=== PATIENT | female | born 1975 | race Caucasian/White ===

== ENCOUNTER 2016-07-12 17:56 | Emergency (ER) | payer OTHER ==
[~2016-07-12] VITALS: Ht 157.5 cm; Wt 56.0 kg
[~2016-07-12 17:56] MED LIST: ADVAIR 100/501 DISK IH; ADVIL,NUPRIN,M200 MG PO; ALPRAZOLAM ER1 MG PO; ALPRAZOLAM1 MG PO; ASMANEX TW200 MICRO1 IH; BACTROBAN OINTM22 GM TP; BENZTROPINE MESY2 MG PO; BONINE25 MG PO; CIPRO500 MG PO; CLINDAMYCIN HC300 MG PO; COGENTIN0.5 MG PO; COGENTIN2 MG PO; COLACE100 MG PO; ESCITALOPRAM OX20 MG PO; FLEXERIL10 MG PO; FLEXERIL5 MG PO; HALDOL5 MG PO; INDOCIN25 MG PO; INVEGA6 MG PO; KEFLEX250 MG PO; LEXAPRO20 MG PO; MECLIZINE HCL25 MG PO; MOBIC15 MG PO; MOBIC7.5 MG PO; MOTRIN600 MG PO; MOTRIN800 MG PO; NAPROSYN375 MG PO; NAPROSYN500 MG PO; NAPROXEN500 MG PO; NORCO 5/3251 TABLET PO; PERCOCET 5/31 TABLET PO; PERPHENAZINE8 MG PO; PROLIXIN2.5 MG PO; SILVADENE,SSD,T20 GM TP; TEMAZEPAM30 MG PO; TRILAFON8 MG PO; ULTRAM50 MG PO; VENTOLIN HFA18 GM IH; XANAX1 MG PO; XANAX2 MG PO; ZANTAC300 MG PO; ZOFRAN ODT4 MG PO; no home
[2016-07-12 19:39] VITALS: BP 130/81
== END 2016-07-12 19:45 | disposition home or self-care (01) ==
LOC: EME 17:56
PROC: 3E0234Z Introduction of Serum, Toxoid and Vaccine into Muscle, Percutaneous Approach (ICD-10-PCS; principal; 2016-07-12)
DX: S51.812A Laceration without foreign body of left forearm, initial encounter (principal); X78.1XXA Intentional self-harm by knife, initial encounter; Z23 Encounter for immunization; J45.909 Unspecified asthma, uncomplicated; K21.9 Gastro-esophageal reflux disease without esophagitis
CPT/HCPCS: 99281; 99285

== ENCOUNTER 2016-08-30 00:58 | Emergency (ER) | payer OTHER ==
[~2016-08-30] VITALS: Ht 160 cm; Wt 52.3 kg
[2016-08-30 01:53] LABS: HEMATOCRIT 39.8 % (36.0-46.0); MCH 29.9 PG (29.0-34.0); MCHC 33.9 G/DL (30.0-36.0); MCV 88.1 FL (83-99); MEAN PLAT.VOLUME 10.8 uM^3 (9.5-12.4); PLATELET COUNT 305 K/uL (156-360); RBC DIS.WIDTH-CV 13.2 % (11.8-14.6); RBC DIS.WIDTH-SD 42.3 % (39-53); RED BLOOD COUNT 4.52 M/uL (3.80-5.20); WHITE BLOOD COUNT 7.6 K/uL (4.1-10.2)
[2016-08-30 01:58] LABS: ADD MIUA? YES; BILIRUBIN NEGATIVE; BLOOD NEGATIVE; COLOR YELLOW ((YELLOW)); GLUCOSE (STRIP) NEGATIVE; KETONES NEGATIVE; LEUKOCYTES NEGATIVE; NITRITE NEGATIVE; PROTEIN (STRIP) NEGATIVE; SPECIFIC GRAVITY 1.014 (1.000-1.030); UROBILINOGEN 0.2 MG/DL (0.2-1.0)
[2016-08-30 02:01] LABS: CHLORIDE 109 mEq/L (99-109); POTASSIUM 3.7 mEq/L (3.7-5.4); SODIUM 142 mEq/L (136-147)
[2016-08-30 02:03] LABS: GLUCOSE 99 mg/dL (70-99)
[2016-08-30 02:04] LABS: ANION GAP 12 MEQ/L (2-14)
[2016-08-30 02:05] LABS: TOTAL BILIRUBIN 0.2 mg/dL (0.0-1.0)
[2016-08-30 02:06] LABS: SERUM ETHYL ALCOHOL 34 mg/dL
[2016-08-30 02:07] LABS: ALKALINE PHOSPHATASE 61 IU/L (3-129); GFR ESTIMATE (CALCULATED) > 59 mL/min/
[2016-08-30 02:08] LABS: UREA NITROGEN (BUN) 14 mg/dL (9-23)
[2016-08-30 02:09] LABS: BACTERIA NONE SEEN /HPF; EPITHELIAL CELLS RARE /HPF; MUCUS TRACE /LPF; RED BLOOD CELLS 0-5 /HPF (0-5); UCUL ADDED? NO; WHITE BLOOD CELLS 0-5 /HPF (0-5)
[2016-08-30 02:10] LABS: LIPASE 68 U/L (1.0-51.0)
[2016-08-30 02:13] LABS: TROP-I INTERPRETATION NEGATIVE; TROPONIN-I < 0.01 ng/mL (0.0-0.30)
[2016-08-30 02:18] LABS: QUANTITATIVE HCG < 4.0 MIU/ML
[2016-08-30] MEDS ORDERED: MAALOX ADVANCE355 ML PO (03:31)
[2016-08-30 04:37] VITALS: BP 106/63
== END 2016-08-30 04:38 | disposition home or self-care (01) ==
LOC: EME 00:58
PROVIDERS: Emergency Medicine
DX: R10.13 Epigastric pain (principal); F10.10 Alcohol abuse, uncomplicated; K29.20 Alcoholic gastritis without bleeding; F14.10 Cocaine abuse, uncomplicated; Z91.14 Patient's other noncompliance with medication regimen; Y90.1 Blood alcohol level of 20-39 mg/100 ml
CPT/HCPCS: 71010; 80053; 81003; 83690; 84484; 84702; 85027; 93005; 99281; 99284; G0480; J7030

== ENCOUNTER 2016-10-04 13:43 | Emergency (ER) | payer OTHER ==
[~2016-10-04] VITALS: Ht 162.6 cm; Wt 54.0 kg
[~2016-10-04 13:43] MED LIST changes: +MAALOX ADVANCE355 ML PO
[2016-10-04 14:52] LABS: HEMATOCRIT 42.7 % (36.0-46.0); MCH 29.8 PG (29.0-34.0); MCHC 32.6 G/DL (30.0-36.0); MCV 91.6 FL (83-99); RBC DIS.WIDTH-CV 12.8 % (11.8-14.6); RBC DIS.WIDTH-SD 43.1 % (39-53); RED BLOOD COUNT 4.66 M/uL (3.80-5.20); WHITE BLOOD COUNT 8.4 K/uL (4.1-10.2)
[2016-10-04 15:02] LABS: CHLORIDE 108 mEq/L (99-109); POTASSIUM 3.8 mEq/L (3.7-5.4); SODIUM 140 mEq/L (136-147)
[2016-10-04 15:04] LABS: GLUCOSE 148 mg/dL (70-99)
[2016-10-04 15:06] LABS: ANION GAP 11 MEQ/L (2-14)
[2016-10-04 15:08] LABS: GFR ESTIMATE (CALCULATED) > 59 mL/min/
[2016-10-04 15:09] LABS: UREA NITROGEN (BUN) 11 mg/dL (9-23)
[2016-10-04 15:16] LABS: TROP-I INTERPRETATION NEGATIVE; TROPONIN-I < 0.01 ng/mL (0.0-0.30)
[2016-10-04 15:17] LABS: QUANTITATIVE HCG < 4.0 MIU/ML
[2016-10-04] MEDS ORDERED: VENTOLIN HFA18 GM IH (15:50)
[2016-10-04] MEDS ORDERED: TESSALON PERLE100 MG PO (15:50)
[2016-10-04] MEDS ORDERED: PREDNISONE20 MG PO (15:50)
[2016-10-04 16:02] VITALS: BP 115/65
[2016-10-04 16:09] LABS: PLAT.SUFFICIENCY ADEQUATE; PLATELET COUNT 249 K/uL (156-360)
== END 2016-10-04 16:08 | disposition home or self-care (01) ==
LOC: EME → EDBD 13:43 → EME 16:08
PROVIDERS: Nurse Practitioner Family
DX: R05 Cough (principal); R06.2 Wheezing; R06.02 Shortness of breath; J45.909 Unspecified asthma, uncomplicated; F14.10 Cocaine abuse, uncomplicated; K21.9 Gastro-esophageal reflux disease without esophagitis; F17.210 Nicotine dependence, cigarettes, uncomplicated
CPT/HCPCS: 71020; 80048; 84484; 84702; 85027; 93005; 94640; 99281; 99284; J2930; J7030; J7644

== ENCOUNTER 2016-10-14 18:24 | Emergency (ER) | payer OTHER ==
[~2016-10-14] VITALS: Ht 157.5 cm; Wt 44.0 kg
[~2016-10-14 18:24] MED LIST changes: +PREDNISONE20 MG PO; +TESSALON PERLE100 MG PO
[2016-10-14] MEDS ORDERED: MOTRIN600 MG PO (18:49)
[2016-10-14] MEDS ORDERED: NORCO 5/3251 TABLET PO (19:25)
[2016-10-14] MEDS ORDERED: PERCOCET 5/31 TABLET PO (19:29)
[2016-10-14 19:32] VITALS: BP 126/73
== END 2016-10-14 19:43 | disposition home or self-care (01) ==
LOC: EME 18:24
DX: S80.01XA Contusion of right knee, initial encounter (principal); W19.XXXA Unspecified fall, initial encounter; Y92.410 Unspecified street and highway as the place of occurrence of the external cause; F17.200 Nicotine dependence, unspecified, uncomplicated
CPT/HCPCS: 73564; 99281; 99284

== ENCOUNTER 2016-10-26 12:22 | Emergency (ER) | payer OTHER ==
[~2016-10-26] VITALS: Ht 160 cm; Wt 54.2 kg
[2016-10-26] MEDS ORDERED: DOXYCYCLINE HY100 MG PO (13:38)
[2016-10-26 15:03] VITALS: BP 132/88
== END 2016-10-26 15:47 | disposition home or self-care (01) ==
LOC: EME 12:22
PROC: 3E0234Z Introduction of Serum, Toxoid and Vaccine into Muscle, Percutaneous Approach (ICD-10-PCS; principal; 2016-10-26)
DX: S51.851A Open bite of right forearm, initial encounter (principal); W54.0XXA Bitten by dog, initial encounter; Z23 Encounter for immunization; Z59.0 Homelessness; Z88.0 Allergy status to penicillin; F17.200 Nicotine dependence, unspecified, uncomplicated
CPT/HCPCS: 99281; 99285

== ENCOUNTER 2016-10-29 21:08 | Emergency (ER) | payer OTHER ==
[~2016-10-29] VITALS: Ht 167.6 cm; Wt 52.9 kg
[~2016-10-29 21:08] MED LIST changes: +DOXYCYCLINE HY100 MG PO
[2016-10-29 21:34] VITALS: BP 131/80
[2016-10-30 13:22] LABS: CHLAMYDIA TRACHOMATIS NEGATIVE; NEISSERIA GONORRHOEAE NEGATIVE
== END 2016-10-29 23:29 | disposition left against medical advice (07) ==
LOC: EME 21:08
PROVIDERS: Physician Assistant
PROC: 3E0234Z Introduction of Serum, Toxoid and Vaccine into Muscle, Percutaneous Approach (ICD-10-PCS; principal; 2016-10-29)
DX: Z23 Encounter for immunization (principal); S41.151D Open bite of right upper arm, subsequent encounter; W54.0XXD Bitten by dog, subsequent encounter
CPT/HCPCS: 87210; 87491; 87591; 99281; 99284

== ENCOUNTER 2017-02-02 08:38 | Emergency (ER) | payer OTHER ==
[~2017-02-02] VITALS: Ht 160 cm; Wt 54.5 kg
[2017-02-02 10:07] LABS: EOSINOPHIL (%) 0.4 % (0-5); HEMATOCRIT 38.5 % (36.0-46.0); IMMATURE GRANULOCYTE (%) 0.4 % (0.0-0.7); INSTRUMENT ABS NEUTROPHIL CT 6.5 K/uL; LYMPHOCYTE COUNT 2.3 K/uL (1.0-2.8); MCH 29.1 PG (29.0-34.0); MCHC 33.2 G/DL (30.0-36.0); MCV 87.5 FL (83-99); MEAN PLAT.VOLUME 10.8 uM^3 (9.5-12.4); MONOCYTE (%) 8.4 % (3-12); MONOCYTE COUNT 0.8 K/uL (0-0.8); NEUTROPHIL (%) 67.2 % (45-76); NEUTROPHIL COUNT 6.5 K/uL (1.8-6.4); PLATELET COUNT 244 K/uL (156-360); RBC DIS.WIDTH-CV 13.4 % (11.8-14.6); RBC DIS.WIDTH-SD 42.9 % (39-53); WHITE BLOOD COUNT 9.7 K/uL (4.1-10.2)
[2017-02-02 10:21] LABS: CHLORIDE 111 mEq/L (99-109); POTASSIUM 3.6 mEq/L (3.7-5.4); SODIUM 141 mEq/L (136-147)
[2017-02-02 10:23] LABS: GLUCOSE 84 mg/dL (70-99)
[2017-02-02 10:24] LABS: ANION GAP 10 MEQ/L (2-14)
[2017-02-02 10:27] LABS: GFR ESTIMATE (CALCULATED) > 59 mL/min/
[2017-02-02 10:28] LABS: UREA NITROGEN (BUN) 12 mg/dL (9-23)
[2017-02-02 10:35] LABS: QUANTITATIVE HCG < 4.0 MIU/ML
[2017-02-02] MEDS ORDERED: NAPROXEN500 MG PO (12:47)
[2017-02-02 12:51] VITALS: BP 148/105
== END 2017-02-02 12:51 | disposition home or self-care (01) ==
LOC: EME 08:38
PROVIDERS: Physician Assistant
DX: N83.201 Unspecified ovarian cyst, right side (principal); F17.200 Nicotine dependence, unspecified, uncomplicated; Z88.0 Allergy status to penicillin; Z88.6 Allergy status to analgesic agent
CPT/HCPCS: 76856; 80048; 84702; 85025; 86900; 86901; 99281; 99284

== ENCOUNTER 2017-02-26 10:27 | Emergency (ER) | payer OTHER ==
[~2017-02-26] VITALS: Ht 160 cm; Wt 54.9 kg
[2017-02-26] MEDS ORDERED: VENTOLIN HFA18 GM IH (12:54)
[2017-02-26] MEDS ORDERED: TESSALON200 MG PO (12:54)
[2017-02-26] MEDS ORDERED: PREDNISONE10 M1 PO (12:54)
[2017-02-26 13:09] VITALS: BP 132/69
== END 2017-02-26 13:10 | disposition home or self-care (01) ==
LOC: EME 10:27
DX: J20.9 Acute bronchitis, unspecified (principal); F17.200 Nicotine dependence, unspecified, uncomplicated; J45.909 Unspecified asthma, uncomplicated; K21.9 Gastro-esophageal reflux disease without esophagitis; F20.9 Schizophrenia, unspecified; G89.29 Other chronic pain; Z88.0 Allergy status to penicillin
CPT/HCPCS: 99281; 99283

== ENCOUNTER 2017-05-31 18:44 | Emergency (ER) | payer OTHER ==
[~2017-05-31] VITALS: Ht 157.5 cm; Wt 54.5 kg
[~2017-05-31 18:44] MED LIST changes: +PREDNISONE10 M1 PO; +TESSALON200 MG PO
[2017-05-31 19:14] VITALS: BP 102/63
[2017-05-31] MEDS ORDERED: INDOCIN50 MG PO (20:37)
== END 2017-05-31 21:14 | disposition home or self-care (01) ==
LOC: EME 18:44
DX: S93.402A Sprain of unspecified ligament of left ankle, initial encounter (principal); W17.2XXA Fall into hole, initial encounter; X50.1XXA Overexertion from prolonged static or awkward postures, initial encounter; Z88.0 Allergy status to penicillin; Z88.5 Allergy status to narcotic agent
CPT/HCPCS: 73610; 99281; 99283

== ENCOUNTER 2017-06-11 17:56 | Emergency (ER) | payer OTHER ==
[~2017-06-11 17:56] MED LIST changes: +INDOCIN50 MG PO
== END 2017-06-11 18:20 | disposition left against medical advice (07) ==
LOC: EME 17:56
DX: R22.1 Localized swelling, mass and lump, neck (principal); Z53.21 Procedure and treatment not carried out due to patient leaving prior to being seen by health care provider

== ENCOUNTER 2017-08-07 15:28 | Emergency (ER) | payer OTHER ==
[~2017-08-07] VITALS: Ht 160 cm; Wt 58.3 kg
[2017-08-07] MEDS ORDERED: ROBITUSSIN AC,T10 ML PO (17:14)
[2017-08-07 17:27] VITALS: BP 131/83
== END 2017-08-07 17:34 | disposition home or self-care (01) ==
LOC: EME 15:28
DX: M94.0 Chondrocostal junction syndrome [Tietze] (principal); J45.909 Unspecified asthma, uncomplicated; G89.29 Other chronic pain; M54.9 Dorsalgia, unspecified; K21.9 Gastro-esophageal reflux disease without esophagitis; F43.10 Post-traumatic stress disorder, unspecified; F20.9 Schizophrenia, unspecified; F41.8 Other specified anxiety disorders; F17.200 Nicotine dependence, unspecified, uncomplicated; Z90.49 Acquired absence of other specified parts of digestive tract; Z88.0 Allergy status to penicillin; Z88.5 Allergy status to narcotic agent
CPT/HCPCS: 71045; 93005; 99281; 99284

== ENCOUNTER 2017-08-14 18:27 | Emergency (ER) | payer OTHER ==
[~2017-08-14] VITALS: Ht 157.5 cm; Wt 58.0 kg
[~2017-08-14 18:27] MED LIST changes: +ROBITUSSIN AC,T10 ML PO
[2017-08-14 20:13] LABS: AMPHETAMINE NEGATIVE (500 ng/mL); BARBITURATES NEGATIVE (200 ng/mL); BENZODIAZEPINES NEGATIVE (150 ng/mL); BUPRENORPHINE NEGATIVE (10 ng/mL); COCAINE PRESUMPTIVE POSITIVE (150 ng/mL); METHADONE NEGATIVE (200 ng/mL); METHAMPHETAMINE NEGATIVE (500 ng/mL); OPIATES (MORPHINE) NEGATIVE (100 ng/mL); OXYCODONE NEGATIVE (100 ng/mL); PHENCYCLIDINE NEGATIVE (25 ng/mL); PROPOXYPHENE NEGATIVE (300 ng/mL); THC CANNABINOIDS PRESUMPTIVE POSITIVE (50 ng/mL); TRICYCLIC ANTIDEPRESSANTS NEGATIVE (300 ng/mL)
[2017-08-14 20:30] LABS: BASOPHIL (%) 0.3 % (0-1); EOSINOPHIL (%) 0.2 % (0-5); HEMATOCRIT 35.3 % (36.0-46.0); HEMOGLOBIN 11.7 G/DL (11.9-15.5); IMMATURE GRANULOCYTE (%) 0.3 % (0.0-0.7); LYMPHOCYTE (%) 16.6 % (15-42); LYMPHOCYTE COUNT 1.5 K/uL (1.0-2.8); MCH 27.1 PG (29.0-34.0); MCHC 33.1 G/DL (30.0-36.0); MCV 81.9 FL (83-99); MONOCYTE (%) 5.6 % (3-12); MONOCYTE COUNT 0.5 K/uL (0-0.8); PLATELET COUNT 280 K/uL (156-360); RBC DIS.WIDTH-CV 14.5 % (11.8-14.6); RBC DIS.WIDTH-SD 43.1 % (39-53); RED BLOOD COUNT 4.31 M/uL (3.80-5.20); WHITE BLOOD COUNT 9.1 K/uL (4.1-10.2)
[2017-08-14 20:44] LABS: CHLORIDE 110 mEq/L (99-109); POTASSIUM 3.6 mEq/L (3.7-5.4); SODIUM 139 mEq/L (136-147)
[2017-08-14 20:46] LABS: GLUCOSE 117 mg/dL (70-99)
[2017-08-14 20:50] LABS: CREATININE 0.7 mg/dL (0.6-1.3); GFR ESTIMATE (CALCULATED) > 59 mL/min/; UREA NITROGEN (BUN) 11 mg/dL (9-23)
[2017-08-14 21:09] LABS: SERUM ETHYL ALCOHOL < 10 mg/dL
[2017-08-14 21:18] LABS: QUANTITATIVE HCG < 4.0 MIU/ML
[2017-08-14 23:50] VITALS: BP 155/87
== END 2017-08-14 23:50 | disposition home or self-care (01) ==
LOC: EME 18:27
PROVIDERS: Emergency Medicine
PROC: 0HQFXZZ Repair Right Hand Skin, External Approach (ICD-10-PCS; principal; 2017-08-14)
DX: S61.212A Laceration without foreign body of right middle finger without damage to nail, initial encounter (principal); S61.210A Laceration without foreign body of right index finger without damage to nail, initial encounter; S61.214A Laceration without foreign body of right ring finger without damage to nail, initial encounter; X78.9XXA Intentional self-harm by unspecified sharp object, initial encounter; Z04.6 Encounter for general psychiatric examination, requested by authority; F20.9 Schizophrenia, unspecified; F19.10 Other psychoactive substance abuse, uncomplicated; F14.90 Cocaine use, unspecified, uncomplicated; F17.200 Nicotine dependence, unspecified, uncomplicated; Z78.1 Physical restraint status; F32.9 Major depressive disorder, single episode, unspecified; G89.29 Other chronic pain; F43.10 Post-traumatic stress disorder, unspecified; J45.909 Unspecified asthma, uncomplicated; K21.9 Gastro-esophageal reflux disease without esophagitis; Z88.0 Allergy status to penicillin
CPT/HCPCS: 80048; 84702; 84999; 85025; 90837; 99281; 99284; G0480